=== PATIENT | male | born 1960 | race Caucasian/White ===

== ENCOUNTER → 2018-01-13 | Outpatient (CLI) | payer BC ==
[~2018-01-13] MED LIST: IOHEXOL 300 MG/ML 75 ML VIAL. IV ONE
[2018-01-13 10:19] LABS: GFR 76.7
--- NOTE | 2018-01-13 11:30 | RAD ---
PQRS Compliance Statement: One or more of the following individualized dose reduction techniques were utilized for this examination: 1. Automated exposure control 2. Adjustment of the mA and/or kV according to patient size 3. Use of iterative reconstruction technique CT chest with contrast January 13, 2018 INDICATION: Fever and cough. COMPARISON: Chest TECHNIQUE: Multiple axial CT images of the chest were obtained from the intravenous administration of 75 mL Omnipaque 300. Coronal and sagittal reformats are provided. FINDINGS: The thyroid gland is normal in appearance. There are no pathologically enlarged axillary, mediastinal or hilar lymph nodes. Heart size is within normal limits. There is no pericardial effusion. Thoracic aorta is normal in course and caliber. There is mild bronchial wall thickening suggestive of bronchitis. There are no suspicious solid noncalcified pulmonary nodules. There are no pleural effusions. No pulmonary vascular congestion or pneumothorax. Lungs are otherwise clear. Visualized portions of the upper abdomen appear normal. No suspicious osseous lesion is identified. IMPRESSION: Mild bronchial wall thickening is suggestive of underlying bronchitis. No pulmonary infiltrate is identified. Electronically signed by: Melvi Main MD (01/13/2018 11:27 AM) [id number]
== END | disposition home or self-care (01) ==
LOC: CT 09:30
PROVIDERS: ATTEND Physician Assistant
DX: J21.8 Acute bronchiolitis due to other specified organisms (principal); Z72.0 Tobacco use
CPT/HCPCS: 36415; 71260; 82565; 84520; Q9967

== ENCOUNTER 2019-11-09 12:57 | Inpatient (IN) | payer SELFPAY ==
[~2019-11-09] VITALS: Ht 182.9 cm; Wt 96.3 kg
[2019-11-09 13:55] LABS: BASO % 0 % (0-3); EOS # 0.2 x10^3/uL (0.0-0.7); EOS % 2 % (0-3); HEMATOCRIT 53.6 % (39.0-53.0); HEMOGLOBIN 17.6 g/dL (13.0-17.5); LYMPH # 1.4 x10^3/uL (1.0-4.8); LYMPH % 19 % (24-48); MEAN CORPUSCULAR HEMOGLOBIN 32 pg (25-35); MEAN CORPUSCULAR HGB CONC 33 g/dL (31-37); MEAN CORPUSCULAR VOLUME 97 fL (79-100); MONO # 0.9 x10^3/uL (0.0-1.1); MONO % 12 % (0-9); NEUT % 67 % (31-73); PLATELET COUNT 174 x10^3/uL (140-400); RED BLOOD COUNT 5.53 x10^6/uL (4.30-5.70); RED CELL DISTRIBUTION WIDTH 14.6 % (11.5-14.5); WHITE BLOOD COUNT 7.5 x10^3/uL (4.0-11.0)
[2019-11-09] MEDS ORDERED: diphenhydrAMINE HCL 25 MG CAPSULE PO PRN (14:00)
[2019-11-09] MEDS ORDERED: ONDANSETRON PF 4 MG/2 ML VIAL. IV PRN (14:00)
[2019-11-09 14:12] LABS: BGAS PH 7.28 (7.35-7.46)
[2019-11-09 14:14] LABS: ALBUMIN 3.6 g/dL (3.4-5.0); ALBUMIN/GLOBULIN RATIO 0.9 (1.0-1.7); CALCIUM 8.9 mg/dL (8.5-10.1); CREATININE 0.8 mg/dL (0.7-1.3); GFR 98.9; TOTAL BILIRUBIN 0.9 mg/dL (0.2-1.0); TOTAL PROTEIN 7.5 g/dL (6.4-8.2)
[2019-11-09] MEDS ORDERED: IPRATRPIUM/ALBUTEROL 0.5/2.5MG 3 ML NEBU. ONE (14:21)
[2019-11-09 14:24] LABS: INFLUENZA A PATIENT NEGATIVE (NEGATIVE); INFLUENZA B PATIENT NEGATIVE (NEGATIVE)
--- NOTE | 2019-11-09 14:27 | NUR ---
PT admitted from office. Pt was brought to unit in wheelchair. Pt was not dyspnic and able to speak full sentences. PT changed and got in bed. When hooked up to O2 pt sat was 61 %. Pt placed on Non-rebreather 6 L and oxygen slowly came up. Pt now on 4 L NC and 94%. ABG done CO2 is 79. Pt is able to verbalize understanding of poc and orientation to unit. PT reports feeling sick for a few weeks and was using friend nebs and inhalers. PT unsure of his medication at this time. Benoit Kirkland
[2019-11-09] MEDS: IPRATRPIUM/ALBUTEROL 0.5/2.5MG 3 ML NEBU. NEB SCH ×2 (14:28→20:31)
[2019-11-09] MEDS ORDERED: METF500T11 PO (14:31)
[2019-11-09] MEDS ORDERED: ACYC400T PO (14:31)
[2019-11-09] MEDS ORDERED: LISI1TAB23 PO (14:31)
[2019-11-09 15:25] VITALS: BP 136/86
[2019-11-09] MEDS ORDERED: methylPREDNISolone SOD SUCC PF 125 MG/2 ML VIAL. IV SCH ×2 (15:30→22:00)
[2019-11-09] MEDS: IV NORMAL SALINE 1,000ML 1,000 ML IV SCH (15:34)
[2019-11-09] MEDS: HEPARIN for SUB-Q USE 5,000 UNIT/ML VIAL. SQ SCH ×2 (15:35→20:32)
[2019-11-09 16:00] VITALS: BP 127/85
--- NOTE | 2019-11-09 16:09 | RAD ---
Single view chest dated 11/09/2019: Comparison made to 01/13/2018 Clinical Indication: Shortness of breath. Findings: Single upright portable exam of the chest was performed. Heart size and mediastinal contours are within normal limits given technique. The lungs are clear without evidence of focal consolidation. Vascular interstitium is within normal limits. Impression:: No acute radiographic abnormality. Electronically signed by: Clay Dos Santos MD (11/09/2019 4:06 PM) [id number]
--- NOTE | 2019-11-09 17:44 | EKG ---
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
[2019-11-09 18:10] VITALS: BP 123/78
[2019-11-09] MEDS ORDERED: levoFLOXacin PER PHARMACY 1 EACH. MC PRN (18:30)
[2019-11-09] MEDS ORDERED: HEPARIN for SUB-Q USE 5,000 UNIT/ML VIAL. SQ SCH (18:30)
[2019-11-09] MEDS ORDERED: IOHEXOL 350 MG/ML 100 ML VIAL. IV ONE (19:00)
[2019-11-09] MEDS ORDERED: PNEUMOC CONJ VACC 23-VALENT 0.5 ML VIAL. VAX IM ONE (19:00)
--- NOTE | 2019-11-09 19:47 | RAD ---
CT arteriogram of the chest. HISTORY: Short of air, positive d-dimer CT arteriogram of the chest was done using 100 mL Omnipaque 350 contrast. Sagittal and coronal MIP images were reconstructed. Thyroid is homogeneous. Mediastinal lymph nodes are upper normal in size. This study is negative for evidence of a pulmonary embolus. Visualized portions the liver and spleen are unremarkable. Adrenal glands are normal. There is a cyst in the left kidney. There is peribronchial thickening in the lung bases. There is mild atelectasis in both lung bases although mild infiltrates are also possible. IMPRESSION: 1. Peribronchial thickening in both lung bases. 2. Mild basilar atelectasis or infiltrates. 3. Negative for a pulmonary embolus. PQRS Compliance Statement: One or more of the following individualized dose reduction techniques were utilized for this examination: 1. Automated exposure control 2. Adjustment of the mA and/or kV according to patient size 3. Use of iterative reconstruction technique Electronically signed by: Matthew Shetty MD (11/09/2019 7:44 PM) [id number]
[2019-11-09 20:00] VITALS: BP 128/74
[2019-11-09] MEDS: methylPREDNISolone SOD SUCC PF 40 MG/ML VIAL. IV SCH (20:31)
[2019-11-09] MEDS ORDERED: DEXTROSE 50% 25 GM / 50ML DISP.SYRIN. IV PRN (20:45)
[2019-11-09 22:00] VITALS: BP 100/55
[2019-11-10] VITALS (12 sets, daily range): BP systolic 98–126; BP diastolic 61–96
[2019-11-10] MEDS: IV NORMAL SALINE 1,000ML 1,000 ML IV SCH ×2 (01:27→08:33)
[2019-11-10] MEDS: IPRATRPIUM/ALBUTEROL 0.5/2.5MG 3 ML NEBU. NEB SCH ×4 (05:11→19:39)
[2019-11-10] MEDS: HEPARIN for SUB-Q USE 5,000 UNIT/ML VIAL. SQ SCH ×3 (05:38→20:42)
[2019-11-10] MEDS: ACYCLOVIR 200 MG CAPSULE PO SCH (08:20)
[2019-11-10] MEDS: hydroCHLOROthiazide 12.5 MG CAPSULE PO SCH (08:21)
[2019-11-10] MEDS: LISINOPRIL 10 MG TABLET PO SCH (08:21)
[2019-11-10] MEDS: INSULIN LISPRO 300 UNITS/3 ML VIAL. SQ SCH ×3 (08:22→17:15)
[2019-11-10] MEDS: methylPREDNISolone SOD SUCC PF 40 MG/ML VIAL. IV SCH ×3 (08:23→20:36)
[2019-11-10 09:09] LABS: BASO % 0 % (0-3); EOS % 0 % (0-3); HEMATOCRIT 51.4 % (39.0-53.0); HEMOGLOBIN 16.9 g/dL (13.0-17.5); LYMPH # 0.8 x10^3/uL (1.0-4.8); LYMPH % 9 % (24-48); MEAN CORPUSCULAR HEMOGLOBIN 32 pg (25-35); MEAN CORPUSCULAR HGB CONC 33 g/dL (31-37); MEAN CORPUSCULAR VOLUME 96 fL (79-100); MONO # 0.4 x10^3/uL (0.0-1.1); MONO % 5 % (0-9); NEUT % 86 % (31-73); PLATELET COUNT 197 x10^3/uL (140-400); RED BLOOD COUNT 5.38 x10^6/uL (4.30-5.70); RED CELL DISTRIBUTION WIDTH 13.9 % (11.5-14.5); WHITE BLOOD COUNT 8.1 x10^3/uL (4.0-11.0)
[2019-11-10 09:22] LABS: ALBUMIN 3.2 g/dL (3.4-5.0); ALBUMIN/GLOBULIN RATIO 0.8 (1.0-1.7); CALCIUM 8.9 mg/dL (8.5-10.1); CREATININE 1.1 mg/dL (0.7-1.3); GFR 68.5; POTASSIUM 4.9 mmol/L (3.5-5.1); TOTAL BILIRUBIN 0.6 mg/dL (0.2-1.0)
[2019-11-10 11:52] LABS: BGAS PH 7.41 (7.35-7.46)
--- NOTE | 2019-11-10 17:00 | NUR ---
Spoke with Dr Arreola, states patient is okay to downgrade to Telemetry status but remain in ICU for observation due to oxygen saturations. Spoke with Respiratory therapist, states unless patient is not in distress then patient does not have to wear bipap machine tonight. Continues to require 4l of Oxygen NC, sats remain at 88-91%. Patient states he is feeling much better from when he arrived to hospital. Continues to ask nurse when he can go home. This nurse continues to educate patient on pneumonia, copd and use of oxygen, states that he is done smoking and does not need to be educated on how to quit. Nurse spoke with sister in regards to patients discharge plan. Sister stated that she is afraid he is going to discharge to soon and will go back to work. States that he did have insurance but then could not afford the $400/month premiums. Sister asked if we could work on getting patient disability, nurse explained that Yarely Valdivia was in early to discuss disability and that she would reach out to the case sealer tomorrow to see what we can do for the patient. Patient continues on IV Antibiotics for treatment of pneumonia and IV solumedrol and duonebs for COPD Exacerbation. Continues to cough large amounts of yellow green sputum but does not have any signs of respiratory distress so far this shift.
[2019-11-10] MEDS: LACTOBACILLUS RHAMNOSUS GG 1 CAPSULE. PO SCH (20:36)
[2019-11-10] MEDS: INSULIN GLARGINE SYRINGE. SQ SCH (20:43)
--- NOTE | 2019-11-10 22:50 | PN ---
DATE: SUBJECTIVE: A 58-year-old male in the course with acute respiratory failure, still having some difficulty with his breathing. He is on 4 liters of only 88%. Blood pressure 114/68, respiratory rate 20, pulse 90. Overall, he does feel much better, however. PHYSICAL EXAMINATION: GENERAL: The patient does not want the BiPAP. LUNGS: Diminished throughout, poor movement of air. CARDIOVASCULAR: Regular sinus rhythm, S1, S2. ABDOMEN: Soft, diffuse tenderness, no rebound, no guarding. Positive bowel sounds, no hepatosplenomegaly noted. EXTREMITIES: No clubbing, cyanosis, nor edema. NEUROLOGIC: The patient is alert and oriented. LABORATORY DATA: The patient's labs do show an elevated blood sugar in the 200s. He has been started on Lantus diabetic teaching and make further evaluation on him as indicated per those results. IMPRESSION: Acute respiratory failure, acute exacerbation of chronic obstructive pulmonary disease, probable bronchitis, type 2 diabetes poorly controlled. Make further evaluation on him as indicated per those results. STEFANIE BORJA MD DR: YAMILETH/geovanna JOB#: [id number] / [id number]
[2019-11-11 03:07] LABS: HEMOGLOBIN A1C 7.3 % (4.8-5.6)
[2019-11-11] MEDS: IPRATRPIUM/ALBUTEROL 0.5/2.5MG 3 ML NEBU. NEB SCH ×4 (05:17→20:36)
[2019-11-11] MEDS: HEPARIN for SUB-Q USE 5,000 UNIT/ML VIAL. SQ SCH ×3 (05:24→21:09)
--- NOTE | 2019-11-11 05:59 | NUR ---
Shift Note: Pt is a/ox3, VSS, pt continues to require 4 liters NC to maintain oxygen saturation >92%, pt continues to cough up thick sputum and states the breathing treatments are really helping. IV antibiotics given as ordered. pt is now saline locked. pt voiding clear yellow urine.
[2019-11-11 06:07] VITALS: BP 104/71
[2019-11-11 06:34] LABS: CALCIUM 8.5 mg/dL (8.5-10.1); GFR 76.5; POTASSIUM 4.9 mmol/L (3.5-5.1)
[2019-11-11] MEDS: hydroCHLOROthiazide 12.5 MG CAPSULE PO SCH (08:36)
[2019-11-11] MEDS: methylPREDNISolone SOD SUCC PF 40 MG/ML VIAL. IV SCH ×2 (08:36→21:08)
[2019-11-11] MEDS: ACYCLOVIR 200 MG CAPSULE PO SCH (08:36)
[2019-11-11] MEDS: LACTOBACILLUS RHAMNOSUS GG 1 CAPSULE. PO SCH ×2 (08:36→21:08)
[2019-11-11] MEDS: LISINOPRIL 10 MG TABLET PO SCH (08:36)
[2019-11-11] MEDS: INSULIN LISPRO 300 UNITS/3 ML VIAL. SQ SCH ×3 (08:37→17:37)
[2019-11-11] MEDS: INSULIN GLARGINE SYRINGE. SQ SCH ×2 (08:39→21:09)
[2019-11-11 08:59] VITALS: BP 102/67
--- NOTE | 2019-11-11 09:30 | NUR ---
Dr Arreola here, plan is to decrease steriod dose and change antibiotics to oral dose. Plan is to discharge tomorrow or saturday. Patient will require oxygen upon discharge but is concerned of cost, manager of case management has worked with [facility] on a discounted [employer]. $115/month for concentrator, $144.65/mth for portable tank and $260/mth for both. States patient will have to pay company money up front. Patient has agreed to get both.
[2019-11-11 11:58] VITALS: BP 121/67
[2019-11-11] MEDS: AZITHROMYCIN 250 MG TABLET. PO SCH (12:23)
--- NOTE | 2019-11-11 14:17 | NUR ---
Patient ambulated to shower and back to room without difficulty, continues to require 4L of oxygen NC. Oxygen removed from patient, saturations decreased to 83%, 3.5L placed back on patient and saturations increased back up to 89%. Patient denies SOA or difficulty breathing. States "this is normal and how i have always been for years, my oxygen has always been that low." Nurse has educated patient throughout day and explained that throughout the years the doctors office has tried to admit patient to the hospital but patient has refused (per patient and family), stated that patient requires oxygen and will need to go home with it. patient stated "that makes sense on why i have probably needed it, i get short of breath walking up the stairs and sometimes i grab things in the air that are not there." Nurse explained that this is not normal and may be due to lack of oxygen. Patient has been very tearful today and continues to be very confused about his COPD diagnosis. Patient has been in room using incentive spirometer as directed and is hopeful on trying to get off using oxygen since he is quitting smoking and pneumonia is getting better.
--- NOTE | 2019-11-11 17:56 | NUR ---
Patient doing well, able to titrate oxygen down to 3L NC with saturations remaining at 90-92%. Patient has been continuing to use incentive spirometer and ambulating in room to help exercise lung movement.
[2019-11-11 19:10] VITALS: BP 145/76
[2019-11-11 22:45] VITALS: BP 111/66
--- NOTE | 2019-11-11 23:04 | PN ---
DATE: SUBJECTIVE: The patient in with acute respiratory failure. The patient's oxygen saturation has gone down as low as 60%; he is hovering at 90% with 4 liters on continuously. The patient is still having trouble walking. His sugars are still markedly elevated. He is on steroids, of course, for his lungs and so this is compromising situation there. CTA with a positive D-dimer showed peribronchial thickening and atelectasis, but negative for PE. The patient also was having difficulty in mobilization. Sputums have been basically unremarkable except for a few gram-positive organisms. The patient was started on Lantus for his blood sugars. The patient is unable to work. His oxygen saturation is noted as hovering at 90; when he talks, it goes below 90; that is on 4 liters of oxygen. OBJECTIVE: VITAL SIGNS: Blood pressure 102/70, respiratory rate 25, pulse 80, afebrile. GENERAL: The patient is alert and oriented x 3. Speech fluent, spontaneous, appropriate except he gets winded and oxygen saturation goes down. LUNGS: Diminished, poor movement of air, but better than they were yesterday, some improvement. CARDIOVASCULAR: Regular sinus rhythm. ABDOMEN: Soft, nontender. EXTREMITIES: No clubbing, cyanosis or edema. NEUROLOGIC: Intact. The patient discussed he needs to stop smoking, and other health factors that might help him due to his high need for oxygen at the present time and other medications. It is becoming a problem to get him on disability and, as he can no longer work with this situation with his lungs and diabetes coming into play, he would be a health hazard to himself and others if he did. IMPRESSION: Acute respiratory failure; type 2 diabetes, poorly controlled; obesity, chronic obstructive pulmonary disease with bronchitis, mild protein malnutrition. PLAN: Continue to monitor the patient, accordingly make further evaluation on him. Taper him down on his Solu-Medrol, and make further evaluation for disability and home oxygen needs. STEFANIE BORJA MD DR: YAMILETH/geovanna JOB#: [id number] / [id number]
--- NOTE | 2019-11-12 04:30 | NUR ---
At beginning of shift pt walked to [employer] with portable O2, tolerated well. Pt sleep off and on during night on 3-4 L of oxygen. Pt up around 0200 for BM and then sat in chair watching TV and had a snack for at least an hour. Occasional productive coughing noted. Pt using incentive spirometer and ambulating in room or off unit for exercise/lung movement.
[2019-11-12] MEDS: HEPARIN for SUB-Q USE 5,000 UNIT/ML VIAL. SQ SCH (05:31)
[2019-11-12] MEDS: IPRATRPIUM/ALBUTEROL 0.5/2.5MG 3 ML NEBU. NEB SCH ×2 (05:44→09:15)
[2019-11-12 06:00] VITALS: BP 111/72
[2019-11-12] MEDS: LACTOBACILLUS RHAMNOSUS GG 1 CAPSULE. PO SCH (07:56)
[2019-11-12] MEDS: hydroCHLOROthiazide 12.5 MG CAPSULE PO SCH (07:57)
[2019-11-12] MEDS: LISINOPRIL 10 MG TABLET PO SCH (07:57)
[2019-11-12] MEDS: AZITHROMYCIN 250 MG TABLET. PO SCH (07:57)
[2019-11-12] MEDS: methylPREDNISolone SOD SUCC PF 40 MG/ML VIAL. IV SCH (07:57)
[2019-11-12] MEDS: INSULIN LISPRO 300 UNITS/3 ML VIAL. SQ SCH ×2 (07:59→12:00)
[2019-11-12] MEDS ORDERED: BENZOCAINE/MENTHOL LOZNGE 18'S BOX. PO PRN (08:15)
[2019-11-12] MEDS: INSULIN GLARGINE SYRINGE. SQ SCH (08:31)
[2019-11-12] MEDS ORDERED: metFORMIN XR 500 MG TAB.ER.24H PO SCH (09:00)
[2019-11-12] MEDS ORDERED: ALBU2.5V14 NEB (10:03)
[2019-11-12] MEDS ORDERED: PRED5TAB PO (10:19)
[2019-11-12 11:00] VITALS: BP 115/80
--- NOTE | 2019-11-12 11:15 | NUR ---
PT dc t home with oxygen for the first time. Oxygen set up with [facility]. Pt sent home with [facility] tank. Pt has 2 hours on 4 L. [facility] to meet patient at his house between 1130 and 1. Pt verbalized understanding fo discharge instructions and medications. Has to go home to meet [facility] then needs to [facility] Rx at [facility]. Albuterol, prednisone taper, and metformin called in bc metformin increased to 1000 BID. PT insistent on driving his truck home that is in the parking lot. RN escorted pt to truck with oxygen tank. Pt did tolerate walk. Helped pt clean off truck and he sat in his truck for a little to focus on breathing then left. Unsure of what pt is to pay to [facility] all that was ordered yesterday. Benoit TYLER
== END 2019-11-12 15:08 | disposition home health service (06) | DRG 189 ==
LOC: ICU 12:57
PROVIDERS: ADMIT Family Medicine; ATTEND Family Medicine
DX: J96.00 Acute respiratory failure, unspecified whether with hypoxia or hypercapnia (principal); J44.1 Chronic obstructive pulmonary disease with (acute) exacerbation; E44.1 Mild protein-calorie malnutrition; J98.11 Atelectasis; E11.65 Type 2 diabetes mellitus with hyperglycemia; E66.9 Obesity, unspecified; Z68.28 Body mass index [BMI] 28.0-28.9, adult
CPT/HCPCS: 36415; 71045; 71275; 80048; 80053; 82803; 82947; 83036; 83880; 85025; 85379; 87070; 87205; 87804; 93005; 94640; 94660; G0238; J0456; J1644; J1815; J1956; J2920; J2930; J7620; Q9967; 97116; J7030